=== PATIENT | female | born 1980 | race Caucasian/White ===

== ENCOUNTER 2018-04-18 15:24 | Outpatient (CLI) | payer BC ==
--- NOTE | 2018-04-18 16:49 | RAD ---
LEFT FOOT THREE VIEWS: Indication: Left foot pain. Comparison: None. FINDINGS: No acute fracture or subluxation is evident. Lisfranc alignment is preserved. Soft tissues are normal appearing. IMPRESSION: No acute osseous abnormality. POS: [facility]
== END 2018-04-18 15:25 | disposition home or self-care (01) ==
LOC: SCSRAD 15:24
PROVIDERS: ATTEND Family Medicine
DX: M79.672 Pain in left foot (principal)

== ENCOUNTER 2020-05-28 09:41 | Outpatient (CLI) | payer BC | END 2020-05-28 09:42 | disposition home or self-care (01) | LOC: CTENTCT 09:41 | PROVIDERS: ATTEND Specialist | DX: J32.9 Chronic sinusitis, unspecified (principal) | CPT/HCPCS: 70486 ==

== ENCOUNTER 2021-02-02 12:30 | Outpatient (CLI) | payer BC ==
[2021-02-02 14:11] LABS: #Eosinphils 0.1 10x3/uL (0.0-0.5); #Monocytes 0.3 10x3/uL (0.0-1.1); #Neutrophils 3.1 10x3/uL (1.5-8.4); %Basophils 0.7 % (0.0-2.0); %Eosinophils 1.8 % (0.0-6.0); %Monocytes 5.8 % (0.0-10.0); %Neutrophils 54.3 % (40.0-75.0); Hemoglobin 13.8 g/dL (12.0-15.5); Mean Corpuscular HGB CONC 34.2 g/dL (32.0-36.0); Mean Corpuscular Hemoglobin 32.9 pg (27.0-33.0); Mean Platelet Volume 9.4 fl (7.4-10.4); Platelet Count 255 10x3/uL (150-450); White Blood Cell (WBC) Count 5.7 10x3/uL (3.5-10.5)
[2021-02-02 14:25] LABS: ALT (SGPT) 12 U/L (8-55); AST (SGOT) 14 U/L (5-34); Albumin 4.6 g/dL (3.5-5.0); Alkaline Phosphatase 33 U/L (40-110); Bilirubin, Direct 0.2 mg/dL (0.1-0.3); Bilirubin, Total 0.7 mg/dL (0.2-1.2); Protein, Total 6.8 g/dL (6.0-8.3)
[2021-02-03 01:03] LABS: SARS-CoV-2 PCR by NAA Not Detected (NotDetected)
== END 2021-02-02 12:31 | disposition home or self-care (01) ==
LOC: LABBT 12:30
PROVIDERS: ATTEND Surgery
DX: Z01.812 Encounter for preprocedural laboratory examination (principal); Z20.822 Contact with and (suspected) exposure to COVID-19
CPT/HCPCS: 80076; 85025; U0003; U0005

== ENCOUNTER 2021-02-07 11:17 | Day surgery (SDC) | payer BC ==
[2021-02-04 14:22] VITALS: BMI 21.7
[2021-02-07] MEDS ORDERED: cefOXitin Sodium/Dextrose 2 GM/50 ML BAG ONE (12:35)
[2021-02-07] MEDS ORDERED: Lidocaine 2% Jelly 5 ML TUBE ONE (14:32)
[2021-02-07] MEDS ORDERED: HYDROmorphone 0.5 MG/0.5 ML SYRINGE ONE ×2 (14:32→15:25)
[2021-02-07] MEDS ORDERED: Midazolam HCl 2 mg/2 ml Vial ONE (14:32)
[2021-02-07] MEDS ORDERED: Fentanyl 100 MCG/2 ML VIAL ONE ×4 (14:32→16:22)
[2021-02-07] MEDS ORDERED: Bupivacaine 0.25% 10 ML VIAL ONE (14:39)
[2021-02-07] MEDS ORDERED: PROPOFOL 200 MG/20 ML VIAL ONE (14:49)
[2021-02-07] MEDS ORDERED: Esmolol 100 MG/10 ML VIAL ONE (14:49)
[2021-02-07] MEDS ORDERED: Dexamethasone 20 MG/5 ML VIAL ONE (14:49)
[2021-02-07] MEDS ORDERED: Lidocaine 1% PF 5 ML VIAL ONE (14:49)
[2021-02-07] MEDS ORDERED: Rocuronium Bromide 10 MG/ML (10ML VIAL) ONE (14:49)
[2021-02-07] MEDS ORDERED: Ondansetron PF 4 MG/2 ML Vial ONE ×2 (14:49→16:52)
[2021-02-07] MEDS ORDERED: Glycopyrrolate 0.2 MG/ML 5 ML SYRINGE ONE (14:49)
[2021-02-07] MEDS ORDERED: HYDROcodone/Acetaminophen 5/325 mg Tablet ONE (17:34)
== END 2021-02-07 18:20 | disposition home or self-care (01) ==
LOC: SDC 11:17
PROVIDERS: ATTEND Surgery
PROC: 0FT44ZZ Resection of Gallbladder, Percutaneous Endoscopic Approach (ICD-10-PCS; principal; 2021-02-07)
DX: K80.10 Calculus of gallbladder with chronic cholecystitis without obstruction (principal); K82.8 Other specified diseases of gallbladder; J45.909 Unspecified asthma, uncomplicated; Z79.899 Other long term (current) drug therapy; Z88.1 Allergy status to other antibiotic agents; Z91.048 Other nonmedicinal substance allergy status
CPT/HCPCS: 88304; C1713; J0694; J1100; J1170; J2250; J2405; J2704; J3010; S0020